=== PATIENT | female | born 1970 | race Caucasian/White ===

== ENCOUNTER 2018-12-09 12:26 | Inpatient (IN) | payer BC ==
[~2018-12-09] VITALS: Ht 162.6 cm; Wt 81.2 kg
[2018-12-09 12:33] VITALS: BP 154/96
[2018-12-09] MEDS ORDERED: IBUPROFEN200 MG ORAL (12:43)
[2018-12-09] MEDS ORDERED: TRAMADOL HCL50 MG ORAL (12:43)
[2018-12-09] MEDS ORDERED: AUGMENTIN 875-1 EAC1 ORAL (12:43)
[2018-12-09] MEDS ORDERED: METRONIDAZOLE500 MG ORAL (12:43)
[2018-12-09] MEDS ORDERED: PERCOCET 5-3251 EACH ORAL (12:43)
[2018-12-09] MEDS ORDERED: Morphine Sulfate 4mg/ml Inj (IV/IM USE ONLY) IVP ONE (12:45)
[2018-12-09 13:08] LABS: EOSINOPHILS % (AUTO) 0.1 % (0.0-3.0); HEMATOCRIT 40.6 % (37.0-47.0); HEMOGLOBIN 13.1 G/DL (12.0-16.0); LYMPHOCYTES % (AUTO) 16.6 % (20.0-45.0); MEAN CORPUSCULAR VOLUME 80 FL (80-99); MONOCYTES % (AUTO) 4.8 % (1.0-10.0); NEUTROPHILS % (AUTO) 77.6 % (45.0-75.0); PLATELET COUNT 376 K/UL (150-450); RED CELL DISTRIBUTION WIDTH 13.4 % (11.6-14.8); WHITE BLOOD COUNT 15.5 K/UL (4.8-10.8)
[2018-12-09 13:18] LABS: ANION GAP 10 mmol/L (5-15); BLOOD UREA NITROGEN 7 mg/dL (7-18); CALCIUM 9.3 MG/DL (8.5-10.1); CARBON DIOXIDE 25 MMOL/L (21-32); CHLORIDE 96 MMOL/L (98-107); CREATININE 0.6 MG/DL (0.55-1.30); POTASSIUM 3.7 MMOL/L (3.5-5.1); SODIUM 131 MMOL/L (136-145)
[2018-12-09 13:22] LABS: ALANINE AMINOTRANSFERASE 19 U/L (12-78); ALBUMIN 3.4 G/DL (3.4-5.0); ALBUMIN/GLOBULIN RATIO 0.8 (1.0-2.7); ALKALINE PHOSPHATASE 86 U/L (46-116); ASPARTATE AMINO TRANSFERASE 12 U/L (15-37); BILIRUBIN,TOTAL 0.5 MG/DL (0.2-1.0)
--- NOTE | 2018-12-09 13:47 | Emergency Room Report ---
History of Present Illness General Chief Complaint: General Complaint Source: Patient Present Illness HPI Patient presents with complaints of diffuse abdominal pain Patient has recent uterine artery thrombectomy performed Complains of 6 out of 10 pain diffuse Denies any fevers denies any chest pain or short of breath Patient has increased nausea denies any vomiting Patient reports pain also starting from her legs up to her chest Denies any other recent fall or trauma Allergies: Coded Allergies: Shrimp (Verified Allergy, Unknown, 12/09/18) Patient History Past Medical History: see triage record Pertinent Family History: none Reviewed Nursing Documentation: PMH: Agreed; PSxH: Agreed Nursing Documentation-PMH Past Medical History: No Stated History Review of Systems All Other Systems: negative except mentioned in HPI Physical Exam Vital Signs Date Time Temp Pulse Resp B/P (MAP) Pulse Ox O2 Delivery O2 Flow Rate FiO2 12/09/18 12:33 97.7 67 18 154/96 100 Room Air Sp02 EP Interpretation: reviewed, normal General Appearance: mild distress - In acute pain Head: normocephalic, atraumatic Eyes: bilateral eye PERRL, bilateral eye EOMI ENT: normal pharynx, dry mucus membranes Neck: supple Respiratory: lungs clear, no retraction, no accessory muscle use Cardiovascular #1: regular rate, rhythm Gastrointestinal: other - Uncomfortable diffusely however no obvious rigid abdomen good bowel sounds Genitourinary: no CVA tenderness Musculoskeletal: normal inspection, back normal Neurologic: alert, oriented x3 Skin: normal color, no rash Lymphatic: no adenopathy Medical Decision Making Diagnostic Impression: Primary Impression: Abdominal pain ER Course With the history exam and presentation, multiple differentials considered, including but not limited to appendicitis, gastritis, cholecystitis, diverticulitis Given the patient's recent procedure other acute abdominal pathology also entertained Vascular emergencies Patient reports that she is allergic to shrimp Radiology also raises concern of imaging with contrast Case is discussed with Dr. Parra And patient will have initial exam with noncontrast Patient has done significantly better with acute intervention and stable for further inpatient care Labs Test 12/09/18 12:55 12/09/18 13:35 White Blood Count 15.5 K/UL (4.8-10.8) Red Blood Count 5.10 M/UL (4.20-5.40) Hemoglobin 13.1 G/DL (12.0-16.0) Hematocrit 40.6 % (37.0-47.0) Mean Corpuscular Volume 80 FL (80-99) Mean Corpuscular Hemoglobin 25.8 PG (27.0-31.0) Mean Corpuscular Hemoglobin Concent 32.3 G/DL (32.0-36.0) Red Cell Distribution Width 13.4 % (11.6-14.8) Platelet Count 376 K/UL (150-450) Mean Platelet Volume 6.6 FL (6.5-10.1) Neutrophils (%) (Auto) 77.6 % (45.0-75.0) Lymphocytes (%) (Auto) 16.6 % (20.0-45.0) Monocytes (%) (Auto) 4.8 % (1.0-10.0) Eosinophils (%) (Auto) 0.1 % (0.0-3.0) Basophils (%) (Auto) 1.0 % (0.0-2.0) Sodium Level 131 MMOL/L (136-145) Potassium Level 3.7 MMOL/L (3.5-5.1) Chloride Level 96 MMOL/L (98-107) Carbon Dioxide Level 25 MMOL/L (21-32) Anion Gap 10 mmol/L (5-15) Blood Urea Nitrogen 7 mg/dL (7-18) Creatinine 0.6 MG/DL (0.55-1.30) Estimat Glomerular Filtration Rate > 60 mL/min (>60) Glucose Level 106 MG/DL (74-106) Calcium Level 9.3 MG/DL (8.5-10.1) Total Bilirubin 0.5 MG/DL (0.2-1.0) Aspartate Amino Transf (AST/SGOT) 12 U/L (15-37) Alanine Aminotransferase (ALT/SGPT) 19 U/L (12-78) Alkaline Phosphatase 86 U/L (46-116) Total Protein 7.5 G/DL (6.4-8.2) Albumin 3.4 G/DL (3.4-5.0) Globulin 4.1 g/dL Albumin/Globulin Ratio 0.8 (1.0-2.7) Lipase 115 U/L (73-393) CT/MRI/US Diagnostic Results CT/MRI/US Diagnostic Results : Impression CT abdomen pelvisImpression: 3.3 cm hyperattenuating focus centrally within the uterus. Given stated clinical history, could represent a recently embolized fibroid or could represent blood in the endometrium. No definite acute abnormality. No evidence of complications related to recent procedure Colonic diverticulosis. No evidence of diverticulitis Incidental findings of small cervical nabothian cysts, minimal degenerative spondylosis changes Last Vital Signs Date Time Temp Pulse Resp B/P (MAP) Pulse Ox O2 Delivery O2 Flow Rate FiO2 12/09/18 12:33 67 18 Room Air 12/09/18 12:33 97.7 154/96 100 Status: improved Disposition: ADMITTED INPATIENT Condition: Serious Referrals: Rigoberto Parra MD (PCP) Sanjay Saenz DO Dec 09, 2018 13:47
[2018-12-09 13:48] LABS: BILIRUBIN, URINE NEGATIVE (NEGATIVE); COLOR,URINE PALE YELLOW; GLUCOSE, URINE (UA) NEGATIVE (NEGATIVE); KETONES,URINE 2+ (NEGATIVE); LEUKOCYTE ESTERASE ,URINE 1+ (NEGATIVE); NITRITE,URINE NEGATIVE (NEGATIVE); PH,URINE 8 (4.5-8.0); PROTEIN,URINE NEGATIVE (NEGATIVE); UROBILINOGEN,URINE NORMAL MG/DL (0.0-1.0)
[2018-12-09 13:54] LABS: APPEARANCE,URINE SLIGHTLY CLOUDY
[2018-12-09] MEDS ORDERED: HYDROmorphone 1mg/ml Carpuject IVP ONE (14:15)
[2018-12-09 14:25] VITALS: BP 148/90
--- NOTE | 2018-12-09 14:32 | Diagnostic Imaging Report ---
Indication: Diffuse abdominal pain, history of recent uterine artery embolization Technique: Spiral acquisitions obtained through the abdomen and pelvis. No oral contrast utilized, per emergency room physician request No IV contrast utilized, per referring physician request.. Multiplanar reconstructions were generated. Total dose length product 1044.55 mGycm. CTDIvol(s) 19.51 mGy. Dose reduction achieved using automated exposure control Comparison: None Findings: Lack of IV contrast limits evaluation. Uterus is mildly prominent, demonstrates a subtle central minimally hyperattenuating area which measures 3.3 cm in diameter . No intrauterine gas or definite fluid. There are probable small cervical nabothian cysts Lack of enteric contrast limits assessment of the GI tract. There are a few colonic diverticula. The appendix is normal. No small bowel distention. No free or loculated intraperitoneal gas or fluid. Distal esophagus, stomach, duodenum are unremarkable. Lack of IV contrast limits assessment of the solid organs. The liver, gallbladder, bile ducts, pancreas, spleen, adrenals, kidneys are all unremarkable. No retroperitoneal or mesenteric mass or adenopathy. The included lung bases are clear. The bones demonstrate minimal degenerative spondylosis changes Impression: 3.3 cm hyperattenuating focus centrally within the uterus. Given stated clinical history, could represent a recently embolized fibroid or could represent blood in the endometrium. No definite acute abnormality. No evidence of complications related to recent procedure Colonic diverticulosis. No evidence of diverticulitis Incidental findings of small cervical nabothian cysts, minimal degenerative spondylosis changes The CT scanner at [facility] is accredited by the [employer] and the scans are performed using protocols designed to limit radiation exposure to as low as reasonably achievable to attain images of sufficient resolution adequate for diagnostic evaluation.
[2018-12-09 14:45] VITALS: BP 161/91
[2018-12-09] MEDS ORDERED: HYDROmorphone 1mg/ml Carpuject IVP PRN (16:00)
[2018-12-09] MEDS: ceFAZolin 1gm in D5W 55ml IVPB SCH ×2 (17:52→21:54)
[2018-12-09] MEDS: Potassium Chloride 20 MEQ in Dextrose 5%/Lactated Ringer's 1,000 ML IV SCH (17:53)
[2018-12-09] MEDS ORDERED: LOSARTAN POTASS50 MG ORAL (19:44)
[2018-12-09] MEDS ORDERED: NORVASC10 MG ORAL (19:44)
[2018-12-09 20:00] VITALS: BP 150/80
[2018-12-09] MEDS ORDERED: Losartan 50mg tab ORAL SCH (21:00)
[2018-12-09] MEDS ORDERED: ceFAZolin 1gm/50ml Premix 50 ML IV SCH (22:00)
[2018-12-10] VITALS: BP 113/62
[2018-12-10] MEDS: Potassium Chloride 20 MEQ in Dextrose 5%/Lactated Ringer's 1,000 ML IV SCH ×4 (01:39→20:05)
[2018-12-10 04:00] VITALS: BP 136/72
[2018-12-10] MEDS: ceFAZolin 1gm in D5W 55ml IVPB SCH ×3 (05:41→21:35)
[2018-12-10 06:43] LABS: BASOPHILS % (AUTO) 0.8 % (0.0-2.0); EOSINOPHILS % (AUTO) 0.8 % (0.0-3.0); HEMATOCRIT 37.1 % (37.0-47.0); HEMOGLOBIN 12.1 G/DL (12.0-16.0); LYMPHOCYTES % (AUTO) 23.3 % (20.0-45.0); MEAN CORPUSCULAR VOLUME 81 FL (80-99); MONOCYTES % (AUTO) 6.6 % (1.0-10.0); NEUTROPHILS % (AUTO) 68.5 % (45.0-75.0); PLATELET COUNT 321 K/UL (150-450); RED CELL DISTRIBUTION WIDTH 13.8 % (11.6-14.8); WHITE BLOOD COUNT 10.2 K/UL (4.8-10.8)
[2018-12-10 07:06] LABS: ANION GAP 5 mmol/L (5-15); BLOOD UREA NITROGEN 5 mg/dL (7-18); CALCIUM 8.2 MG/DL (8.5-10.1); CARBON DIOXIDE 29 MMOL/L (21-32); CHLORIDE 100 MMOL/L (98-107); CREATININE 0.6 MG/DL (0.55-1.30); POTASSIUM 3.8 MMOL/L (3.5-5.1); SODIUM 134 MMOL/L (136-145)
--- NOTE | 2018-12-10 08:19 | General Progress Note ---
Assessment/Plan Problem List: (1) Constipation ICD Codes: K59.00 - Constipation, unspecified SNOMED: 68600283 (2) Abdominal pain ICD Codes: R10.9 - Unspecified abdominal pain SNOMED: 16206705 Assessment/Plan bowel regimen fu labs pain control advance diet to full liquid will fu Subjective ROS Limited/Unobtainable: Yes Allergies: Coded Allergies: Shrimp (Verified Allergy, Unknown, 12/09/18) Subjective c/o pelvic pain radiating to the left thigh Objective Last 24 Hour Vital Signs Date Time Temp Pulse Resp B/P (MAP) Pulse Ox O2 Delivery O2 Flow Rate FiO2 12/10/18 04:00 98.1 74 18 136/72 (93) 98 12/10/18 02:17 99.6 12/10/18 00:00 98.2 82 18 113/62 (79) 93 12/09/18 21:56 79 157/80 12/09/18 21:55 157/80 12/09/18 21:00 Room Air 12/09/18 20:00 97.6 79 18 150/80 (103) 99 12/09/18 14:45 99.6 77 18 161/91 (114) 100 12/09/18 14:37 Room Air 12/09/18 14:25 97.7 77 16 148/90 100 Room Air 12/09/18 14:25 97.7 77 16 148/90 100 Room Air 12/09/18 13:33 97.7 12/09/18 12:33 67 18 Room Air 12/09/18 12:33 97.7 67 18 154/96 100 Room Air 12/09/18 12:33 97.7 67 18 154/96 100 Room Air Intake and Output 12/09/18 12/10/18 18:59 06:59 Intake Total 1000 ml 1760 ml Output Total 0 ml Balance 1000 ml 1760 ml Intake IV Total 1000 ml 1760 ml Output Urine Total 0 ml # Voids 4 Laboratory Tests 12/09/18 12:55: White Blood Count 15.5H, Red Blood Count 5.10, Hemoglobin 13.1, Hematocrit 40.6 , Mean Corpuscular Volume 80, Mean Corpuscular Hemoglobin 25.8L, Mean Corpuscular Hemoglobin Concent 32.3, Red Cell Distribution Width 13.4, Platelet Count 376, Mean Platelet Volume 6.6, Neutrophils (%) (Auto) 77.6H, Lymphocytes ( %) (Auto) 16.6L, Monocytes (%) (Auto) 4.8, Eosinophils (%) (Auto) 0.1, Basophils (%) (Auto) 1.0, Sodium Level 131L, Potassium Level 3.7, Chloride Level 96L, Carbon Dioxide Level 25, Anion Gap 10, Blood Urea Nitrogen 7, Creatinine 0.6, Estimat Glomerular Filtration Rate > 60, Glucose Level 106, Calcium Level 9.3, Total Bilirubin 0.5, Aspartate Amino Transf (AST/SGOT) 12L, Alanine Aminotransferase (ALT/SGPT) 19, Alkaline Phosphatase 86, Total Protein 7.5, Albumin 3.4, Globulin 4.1, Albumin/Globulin Ratio 0.8L, Lipase 115 12/09/18 13:35: Urine Color Pale yellow, Urine Appearance Slightly cloudy, Urine pH 8, Urine Specific [place] 1.010, Urine Protein Negative, Urine Glucose (UA) Negative, Urine Ketones 2+H, Urine Blood 4+H, Urine Nitrite Negative, Urine Bilirubin Negative, Urine Urobilinogen Normal, Urine Leukocyte Esterase 1+H, Urine RBC 2- 4H, Urine WBC 0-2, Urine Squamous Epithelial Cells Few, Urine Bacteria Few 12/10/18 05:05: White Blood Count 10.2, Red Blood Count 4.60, Hemoglobin 12.1, Hematocrit 37.1, Mean Corpuscular Volume 81, Mean Corpuscular Hemoglobin 26.3L, Mean Corpuscular Hemoglobin Concent 32.6, Red Cell Distribution Width 13.8, Platelet Count 321, Mean Platelet Volume 6.6, Neutrophils (%) (Auto) 68.5, Lymphocytes (%) (Auto) 23.3, Monocytes (%) (Auto) 6.6, Eosinophils (%) (Auto) 0.8, Basophils (%) (Auto ) 0.8, Sodium Level 134L, Potassium Level 3.8, Chloride Level 100, Carbon Dioxide Level 29, Anion Gap 5, Blood Urea Nitrogen 5L, Creatinine 0.6, Estimat Glomerular Filtration Rate > 60, Glucose Level 101, Calcium Level 8.2L Height (Feet): 5 Height (Inches): 4.00 Weight (Pounds): 179 General Appearance: alert EENT: normal ENT inspection Neck: supple Cardiovascular: normal rate Respiratory/Chest: decreased breath sounds Abdomen: normal bowel sounds, soft, tender Extremities: non-tender Lucas Mclaughlin MD Dec 10, 2018 08:19
[2018-12-10] MEDS: Losartan 50mg tab ORAL SCH ×2 (09:00→09:09)
[2018-12-10] MEDS: Docusate 100mg cap ORAL SCH ×2 (09:06→18:32)
[2018-12-10] MEDS: Lactulose 20gm/30ml UDC ORAL SCH ×3 (09:06→18:32)
--- NOTE | 2018-12-10 11:48 | General Surgery Progress Note ---
General Surgery-Progress Note Subjective Procedure Performed uterine artery embolization Chief Complaint: uncontrolled pain Symptoms: improved, tolerating diet, voiding well Objective Last 24 Hour Vital Signs Date Time Temp Pulse Resp B/P (MAP) Pulse Ox O2 Delivery O2 Flow Rate FiO2 12/10/18 09:00 Room Air 12/10/18 04:00 98.1 74 18 136/72 (93) 98 12/10/18 02:17 99.6 12/10/18 00:00 98.2 82 18 113/62 (79) 93 12/09/18 21:56 79 157/80 12/09/18 21:55 157/80 12/09/18 21:00 Room Air 12/09/18 20:00 97.6 79 18 150/80 (103) 99 12/09/18 14:45 99.6 77 18 161/91 (114) 100 12/09/18 14:37 Room Air 12/09/18 14:25 97.7 77 16 148/90 100 Room Air 12/09/18 14:25 97.7 77 16 148/90 100 Room Air 12/09/18 13:33 97.7 12/09/18 12:33 67 18 Room Air 12/09/18 12:33 97.7 67 18 154/96 100 Room Air 12/09/18 12:33 97.7 67 18 154/96 100 Room Air I&O Intake and Output 12/09/18 12/10/18 18:59 06:59 Intake Total 1000 ml 1760 ml Output Total 0 ml Balance 1000 ml 1760 ml Intake IV Total 1000 ml 1760 ml Output Urine Total 0 ml # Voids 4 Dressing: dry Wound: clean Cardiovascular: RSR Respiratory: clear Abdomen: soft, flat, scaphoid, tenderness, absent bowel sounds Extremities: no edema, no tenderness, no cyanosis Laboratory Tests Test 12/09/18 12:55 12/09/18 13:35 12/10/18 05:05 White Blood Count 15.5 K/UL (4.8-10.8) H 10.2 K/UL (4.8-10.8) Red Blood Count 5.10 M/UL (4.20-5.40) 4.60 M/UL (4.20-5.40) Hemoglobin 13.1 G/DL (12.0-16.0) 12.1 G/DL (12.0-16.0) Hematocrit 40.6 % (37.0-47.0) 37.1 % (37.0-47.0) Mean Corpuscular Volume 80 FL (80-99) 81 FL (80-99) Mean Corpuscular Hemoglobin 25.8 PG (27.0-31.0) L 26.3 PG (27.0-31.0) L Mean Corpuscular Hemoglobin Concent 32.3 G/DL (32.0-36.0) 32.6 G/DL (32.0-36.0) Red Cell Distribution Width 13.4 % (11.6-14.8) 13.8 % (11.6-14.8) Platelet Count 376 K/UL (150-450) 321 K/UL (150-450) Mean Platelet Volume 6.6 FL (6.5-10.1) 6.6 FL (6.5-10.1) Neutrophils (%) (Auto) 77.6 % (45.0-75.0) H 68.5 % (45.0-75.0) Lymphocytes (%) (Auto) 16.6 % (20.0-45.0) L 23.3 % (20.0-45.0) Monocytes (%) (Auto) 4.8 % (1.0-10.0) 6.6 % (1.0-10.0) Eosinophils (%) (Auto) 0.1 % (0.0-3.0) 0.8 % (0.0-3.0) Basophils (%) (Auto) 1.0 % (0.0-2.0) 0.8 % (0.0-2.0) Sodium Level 131 MMOL/L (136-145) L 134 MMOL/L (136-145) L Potassium Level 3.7 MMOL/L (3.5-5.1) 3.8 MMOL/L (3.5-5.1) Chloride Level 96 MMOL/L (98-107) L 100 MMOL/L (98-107) Carbon Dioxide Level 25 MMOL/L (21-32) 29 MMOL/L (21-32) Anion Gap 10 mmol/L (5-15) 5 mmol/L (5-15) Blood Urea Nitrogen 7 mg/dL (7-18) 5 mg/dL (7-18) L Creatinine 0.6 MG/DL (0.55-1.30) 0.6 MG/DL (0.55-1.30) Estimat Glomerular Filtration Rate > 60 mL/min (>60) > 60 mL/min (>60) Glucose Level 106 MG/DL (74-106) 101 MG/DL (74-106) Calcium Level 9.3 MG/DL (8.5-10.1) 8.2 MG/DL (8.5-10.1) L Total Bilirubin 0.5 MG/DL (0.2-1.0) Aspartate Amino Transf (AST/SGOT) 12 U/L (15-37) L Alanine Aminotransferase (ALT/SGPT) 19 U/L (12-78) Alkaline Phosphatase 86 U/L (46-116) Total Protein 7.5 G/DL (6.4-8.2) Albumin 3.4 G/DL (3.4-5.0) Globulin 4.1 g/dL Albumin/Globulin Ratio 0.8 (1.0-2.7) L Lipase 115 U/L (73-393) Urine Color Pale yellow Urine Appearance Slightly cloudy Urine pH 8 (4.5-8.0) Urine Specific [place] 1.010 (1.005-1.035) Urine Protein Negative (NEGATIVE) Urine Glucose (UA) Negative (NEGATIVE) Urine Ketones 2+ (NEGATIVE) H Urine Blood 4+ (NEGATIVE) H Urine Nitrite Negative (NEGATIVE) Urine Bilirubin Negative (NEGATIVE) Urine Urobilinogen Normal MG/DL (0.0-1.0) Urine Leukocyte Esterase 1+ (NEGATIVE) H Urine RBC 2-4 /HPF (0 - 2) H Urine WBC 0-2 /HPF (0 - 2) Urine Squamous Epithelial Cells Few /LPF (NONE/OCC) Urine Bacteria Few /HPF (NONE) Imaging no obvious abscess seen Additional Comments wbc normally elevated followin uae Plan Additional Comments pain controlled w iv dilaudid, will attempt oral meds tomorrow. ambulate today. Rigoberto Parra MD Dec 10, 2018 11:48
[2018-12-10] MEDS ORDERED: Tubing IV Secondary IV ONE (14:10)
[2018-12-10 20:00] VITALS: BP 156/90
[2018-12-10] MEDS: Miralax 17gm pkt ORAL SCH (20:04)
[2018-12-11] VITALS (8 sets, daily range): BP systolic 133–182; BP diastolic 74–98
[2018-12-11] MEDS: Potassium Chloride 20 MEQ in Dextrose 5%/Lactated Ringer's 1,000 ML IV SCH ×4 (02:40→23:54)
[2018-12-11] MEDS: ceFAZolin 1gm in D5W 55ml IVPB SCH ×3 (05:37→21:36)
[2018-12-11 06:52] LABS: ANION GAP 7 mmol/L (5-15); BASOPHILS % (AUTO) 1.4 % (0.0-2.0); BLOOD UREA NITROGEN 3 mg/dL (7-18); CALCIUM 8.9 MG/DL (8.5-10.1); CARBON DIOXIDE 30 MMOL/L (21-32); CHLORIDE 99 MMOL/L (98-107); CREATININE 0.6 MG/DL (0.55-1.30); EOSINOPHILS % (AUTO) 1.5 % (0.0-3.0); HEMATOCRIT 37.7 % (37.0-47.0); HEMOGLOBIN 12.5 G/DL (12.0-16.0); LYMPHOCYTES % (AUTO) 20.2 % (20.0-45.0); MEAN CORPUSCULAR VOLUME 80 FL (80-99); MONOCYTES % (AUTO) 6.2 % (1.0-10.0); NEUTROPHILS % (AUTO) 70.7 % (45.0-75.0); PLATELET COUNT 304 K/UL (150-450); POTASSIUM 3.9 MMOL/L (3.5-5.1); RED BLOOD COUNT 4.72 M/UL (4.20-5.40); RED CELL DISTRIBUTION WIDTH 13.8 % (11.6-14.8); SODIUM 135 MMOL/L (136-145)
--- NOTE | 2018-12-11 08:06 | General Progress Note ---
Assessment/Plan Problem List: (1) Constipation ICD Codes: K59.00 - Constipation, unspecified SNOMED: 81992795 (2) Abdominal pain ICD Codes: R10.9 - Unspecified abdominal pain SNOMED: 72381271 Assessment/Plan bowel regimen add dulcolax sup and mineral oil for today fu labs pain control advance diet to gi soft will fu Subjective ROS Limited/Unobtainable: Yes Allergies: Coded Allergies: ACETAMINOPHEN (Verified Allergy, Unknown, 12/10/18) HYDROCODONE (Verified Allergy, Unknown, 12/10/18) Shrimp (Verified Allergy, Unknown, 12/09/18) Subjective feeling better passing gas no bm yet Objective Last 24 Hour Vital Signs Date Time Temp Pulse Resp B/P (MAP) Pulse Ox O2 Delivery O2 Flow Rate FiO2 12/11/18 04:00 99.2 85 18 133/80 (97) 98 12/11/18 00:00 99.3 77 18 148/84 (105) 97 12/10/18 21:00 Room Air 12/10/18 20:00 99.5 79 18 156/90 (112) 97 12/10/18 09:00 Room Air Intake and Output 12/10/18 12/11/18 19:00 07:00 Intake Total 1465 ml 1725 ml Balance 1465 ml 1725 ml Intake Oral 360 ml 360 ml IV Total 1105 ml 1365 ml # Voids 4 3 Laboratory Tests 12/11/18 05:35: White Blood Count 11.0H, Red Blood Count 4.72, Hemoglobin 12.5, Hematocrit 37.7 , Mean Corpuscular Volume 80, Mean Corpuscular Hemoglobin 26.5L, Mean Corpuscular Hemoglobin Concent 33.1, Red Cell Distribution Width 13.8, Platelet Count 304, Mean Platelet Volume 6.8, Neutrophils (%) (Auto) 70.7, Lymphocytes (% ) (Auto) 20.2, Monocytes (%) (Auto) 6.2, Eosinophils (%) (Auto) 1.5, Basophils ( %) (Auto) 1.4, Sodium Level 135L, Potassium Level 3.9, Chloride Level 99, Carbon Dioxide Level 30, Anion Gap 7, Blood Urea Nitrogen 3L, Creatinine 0.6, Estimat Glomerular Filtration Rate > 60, Glucose Level 103, Calcium Level 8.9 Height (Feet): 5 Height (Inches): 4.00 Weight (Pounds): 179 General Appearance: alert EENT: normal ENT inspection Neck: supple Cardiovascular: normal rate Respiratory/Chest: lungs clear Abdomen: soft, hypoactive bowel sounds, tender Extremities: non-tender Lucas Mclaughlin MD Dec 11, 2018 08:06
[2018-12-11] MEDS ORDERED: Mineral Oil 30ml ud ORAL SCH (08:15)
[2018-12-11] MEDS: Losartan 50mg tab ORAL SCH (08:27)
[2018-12-11] MEDS: Lactulose 20gm/30ml UDC ORAL SCH ×3 (08:27→17:22)
[2018-12-11] MEDS: Docusate 100mg cap ORAL SCH ×2 (08:27→17:22)
--- NOTE | 2018-12-11 11:41 | General Surgery Progress Note ---
General Surgery-Progress Note Subjective Procedure Performed uterine artery embolization Symptoms: improved, tolerating diet, voiding well, BM, pain decreased Objective Last 24 Hour Vital Signs Date Time Temp Pulse Resp B/P (MAP) Pulse Ox O2 Delivery O2 Flow Rate FiO2 12/11/18 11:14 98.9 12/11/18 08:39 Room Air 12/11/18 08:27 85 133/80 12/11/18 08:27 133/80 12/11/18 08:00 98.9 81 18 162/82 (108) 98 12/11/18 04:00 99.2 85 18 133/80 (97) 98 12/11/18 00:00 99.3 77 18 148/84 (105) 97 12/10/18 21:00 Room Air 12/10/18 20:00 99.5 79 18 156/90 (112) 97 I&O Intake and Output 12/10/18 12/11/18 18:59 06:59 Intake Total 1465 ml 1725 ml Balance 1465 ml 1725 ml Intake Oral 360 ml 360 ml IV Total 1105 ml 1365 ml # Voids 4 3 Dressing: dry Wound: clean Drains: none Cardiovascular: RSR Respiratory: clear Abdomen: soft, flat, scaphoid, tenderness Extremities: no edema, no tenderness, no cyanosis Laboratory Tests Test 12/11/18 05:35 White Blood Count 11.0 K/UL (4.8-10.8) H Red Blood Count 4.72 M/UL (4.20-5.40) Hemoglobin 12.5 G/DL (12.0-16.0) Hematocrit 37.7 % (37.0-47.0) Mean Corpuscular Volume 80 FL (80-99) Mean Corpuscular Hemoglobin 26.5 PG (27.0-31.0) L Mean Corpuscular Hemoglobin Concent 33.1 G/DL (32.0-36.0) Red Cell Distribution Width 13.8 % (11.6-14.8) Platelet Count 304 K/UL (150-450) Mean Platelet Volume 6.8 FL (6.5-10.1) Neutrophils (%) (Auto) 70.7 % (45.0-75.0) Lymphocytes (%) (Auto) 20.2 % (20.0-45.0) Monocytes (%) (Auto) 6.2 % (1.0-10.0) Eosinophils (%) (Auto) 1.5 % (0.0-3.0) Basophils (%) (Auto) 1.4 % (0.0-2.0) Sodium Level 135 MMOL/L (136-145) L Potassium Level 3.9 MMOL/L (3.5-5.1) Chloride Level 99 MMOL/L (98-107) Carbon Dioxide Level 30 MMOL/L (21-32) Anion Gap 7 mmol/L (5-15) Blood Urea Nitrogen 3 mg/dL (7-18) L Creatinine 0.6 MG/DL (0.55-1.30) Estimat Glomerular Filtration Rate > 60 mL/min (>60) Glucose Level 103 MG/DL (74-106) Calcium Level 8.9 MG/DL (8.5-10.1) Assessment Additional Comments dulcolax suppository pending. Plan Additional Comments attempt oral pain medication today Rigoberto Parra MD Dec 11, 2018 11:41
[2018-12-11] MEDS: Miralax 17gm pkt ORAL SCH (21:00)
[2018-12-12 03:32] VITALS: BP 166/80
[2018-12-12 04:52] VITALS: BP 155/83
[2018-12-12] MEDS: ceFAZolin 1gm in D5W 55ml IVPB SCH ×3 (05:06→22:00)
[2018-12-12] MEDS: Potassium Chloride 20 MEQ in Dextrose 5%/Lactated Ringer's 1,000 ML IV SCH ×4 (05:06→21:22)
[2018-12-12 06:16] LABS: BASOPHILS % (AUTO) 0.9 % (0.0-2.0); EOSINOPHILS % (AUTO) 1.2 % (0.0-3.0); HEMATOCRIT 37.4 % (37.0-47.0); HEMOGLOBIN 12.2 G/DL (12.0-16.0); LYMPHOCYTES % (AUTO) 19.4 % (20.0-45.0); MEAN CORPUSCULAR VOLUME 80 FL (80-99); MONOCYTES % (AUTO) 7.5 % (1.0-10.0); PLATELET COUNT 306 K/UL (150-450); RED BLOOD COUNT 4.67 M/UL (4.20-5.40); RED CELL DISTRIBUTION WIDTH 13.9 % (11.6-14.8); WHITE BLOOD COUNT 11.1 K/UL (4.8-10.8)
[2018-12-12 06:30] LABS: ANION GAP 5 mmol/L (5-15); BLOOD UREA NITROGEN 4 mg/dL (7-18); CALCIUM 8.8 MG/DL (8.5-10.1); CARBON DIOXIDE 31 MMOL/L (21-32); CHLORIDE 98 MMOL/L (98-107); CREATININE 0.6 MG/DL (0.55-1.30); POTASSIUM 3.5 MMOL/L (3.5-5.1); SODIUM 134 MMOL/L (136-145)
[2018-12-12 08:00] VITALS: BP 144/77
[2018-12-12] MEDS: Docusate 100mg cap ORAL SCH ×2 (08:44→17:40)
[2018-12-12] MEDS: Losartan 50mg tab ORAL SCH (08:44)
[2018-12-12] MEDS: Lactulose 20gm/30ml UDC ORAL SCH ×3 (08:44→17:40)
[2018-12-12] MEDS ORDERED: Simethicone 80mg tab ORAL PRN (10:45)
[2018-12-12] MEDS ORDERED: Simethicone 80mg tab ORAL SCH (10:46)
--- NOTE | 2018-12-12 10:48 | GI Progress Note ---
Assessment/Plan Problems: (1) Gas pain ICD Codes: R14.1 - Gas pain SNOMED: 31671644 (2) Abdominal pain ICD Codes: R10.9 - Unspecified abdominal pain SNOMED: 44345866 (3) Constipation ICD Codes: K59.00 - Constipation, unspecified SNOMED: 21574280 Status: unchanged Status Narrative Discussed with Dr. Mclaughlin. Assessment/Plan bowel regimen add dulcolax sup and mineral oil for today Simethicone as needed Probiotics 3 times daily pain control advance diet to gi soft fu labs The patient was seen and examined at bedside and all new and available data was reviewed in the patients chart. I agree with the above findings, impression and plan. (Patient seen earlier today. Signature stamp does not reflect patient encounter time.). - Lucas Mclaughlin MD Subjective Gastrointestinal/Abdominal: Reports: abdominal pain Subjective Patient has complaint of generalized abdominal pain after P.o. intake had bowel movement yesterday Objective Last 24 Hour Vital Signs Date Time Temp Pulse Resp B/P (MAP) Pulse Ox O2 Delivery O2 Flow Rate FiO2 12/12/18 09:00 Room Air 12/12/18 08:44 71 144/77 12/12/18 08:44 144/77 12/12/18 08:00 97.8 71 18 144/77 (99) 100 12/12/18 04:52 76 155/83 (107) 12/12/18 04:23 98.3 12/12/18 03:32 98.3 75 20 166/80 (108) 98 12/11/18 23:54 98.5 90 20 152/79 (103) 98 12/11/18 22:29 85 165/85 (111) 12/11/18 22:06 99.0 12/11/18 21:36 Room Air 12/11/18 20:40 99.0 88 20 182/98 (126) 98 12/11/18 16:00 97.1 97 20 147/89 (108) 98 12/11/18 12:00 98.3 97 20 146/74 (98) 97 Intake and Output 12/11/18 12/12/18 19:00 07:00 Intake Total 2445 ml 1850 ml Balance 2445 ml 1850 ml Intake Oral 890 ml 240 ml IV Total 1555 ml 1610 ml # Voids 3 4 # Bowel Movements 2 Laboratory Tests Test 12/12/18 05:00 White Blood Count 11.1 K/UL (4.8-10.8) H Red Blood Count 4.67 M/UL (4.20-5.40) Hemoglobin 12.2 G/DL (12.0-16.0) Hematocrit 37.4 % (37.0-47.0) Mean Corpuscular Volume 80 FL (80-99) Mean Corpuscular Hemoglobin 26.2 PG (27.0-31.0) L Mean Corpuscular Hemoglobin Concent 32.7 G/DL (32.0-36.0) Red Cell Distribution Width 13.9 % (11.6-14.8) Platelet Count 306 K/UL (150-450) Mean Platelet Volume 6.4 FL (6.5-10.1) L Neutrophils (%) (Auto) 71.0 % (45.0-75.0) Lymphocytes (%) (Auto) 19.4 % (20.0-45.0) L Monocytes (%) (Auto) 7.5 % (1.0-10.0) Eosinophils (%) (Auto) 1.2 % (0.0-3.0) Basophils (%) (Auto) 0.9 % (0.0-2.0) Sodium Level 134 MMOL/L (136-145) L Potassium Level 3.5 MMOL/L (3.5-5.1) Chloride Level 98 MMOL/L (98-107) Carbon Dioxide Level 31 MMOL/L (21-32) Anion Gap 5 mmol/L (5-15) Blood Urea Nitrogen 4 mg/dL (7-18) L Creatinine 0.6 MG/DL (0.55-1.30) Estimat Glomerular Filtration Rate > 60 mL/min (>60) Glucose Level 88 MG/DL (74-106) Calcium Level 8.8 MG/DL (8.5-10.1) Height (Feet): 5 Height (Inches): 4.00 Weight (Pounds): 179 General Appearance: WD/WN, no apparent distress, alert Cardiovascular: normal rate Respiratory/Chest: normal breath sounds, no respiratory distress Abdominal Exam: normal bowel sounds, non tender, soft Extremities: normal range of motion, non-tender Cherelle Fagan CUT OFF SAW SET UP OPERATOR Dec 12, 2018 10:48
--- NOTE | 2018-12-12 11:11 | General Surgery Progress Note ---
General Surgery-Progress Note Subjective Procedure Performed uterine artery embolization Symptoms: passing flatus, BM, pain decreased Additional Comments pain ff eating, minimal BM yesterday Objective Last 24 Hour Vital Signs Date Time Temp Pulse Resp B/P (MAP) Pulse Ox O2 Delivery O2 Flow Rate FiO2 12/12/18 09:00 Room Air 12/12/18 08:44 71 144/77 12/12/18 08:44 144/77 12/12/18 08:00 97.8 71 18 144/77 (99) 100 12/12/18 04:52 76 155/83 (107) 12/12/18 04:23 98.3 12/12/18 03:32 98.3 75 20 166/80 (108) 98 12/11/18 23:54 98.5 90 20 152/79 (103) 98 12/11/18 22:29 85 165/85 (111) 12/11/18 22:06 99.0 12/11/18 21:36 Room Air 12/11/18 20:40 99.0 88 20 182/98 (126) 98 12/11/18 16:00 97.1 97 20 147/89 (108) 98 12/11/18 12:00 98.3 97 20 146/74 (98) 97 I&O Intake and Output 12/11/18 12/12/18 19:00 07:00 Intake Total 2445 ml 1850 ml Balance 2445 ml 1850 ml Intake Oral 890 ml 240 ml IV Total 1555 ml 1610 ml # Voids 3 4 # Bowel Movements 2 Laboratory Tests Test 12/12/18 05:00 White Blood Count 11.1 K/UL (4.8-10.8) H Red Blood Count 4.67 M/UL (4.20-5.40) Hemoglobin 12.2 G/DL (12.0-16.0) Hematocrit 37.4 % (37.0-47.0) Mean Corpuscular Volume 80 FL (80-99) Mean Corpuscular Hemoglobin 26.2 PG (27.0-31.0) L Mean Corpuscular Hemoglobin Concent 32.7 G/DL (32.0-36.0) Red Cell Distribution Width 13.9 % (11.6-14.8) Platelet Count 306 K/UL (150-450) Mean Platelet Volume 6.4 FL (6.5-10.1) L Neutrophils (%) (Auto) 71.0 % (45.0-75.0) Lymphocytes (%) (Auto) 19.4 % (20.0-45.0) L Monocytes (%) (Auto) 7.5 % (1.0-10.0) Eosinophils (%) (Auto) 1.2 % (0.0-3.0) Basophils (%) (Auto) 0.9 % (0.0-2.0) Sodium Level 134 MMOL/L (136-145) L Potassium Level 3.5 MMOL/L (3.5-5.1) Chloride Level 98 MMOL/L (98-107) Carbon Dioxide Level 31 MMOL/L (21-32) Anion Gap 5 mmol/L (5-15) Blood Urea Nitrogen 4 mg/dL (7-18) L Creatinine 0.6 MG/DL (0.55-1.30) Estimat Glomerular Filtration Rate > 60 mL/min (>60) Glucose Level 88 MG/DL (74-106) Calcium Level 8.8 MG/DL (8.5-10.1) Plan Additional Comments GI consulted abdominal US ordered. possible use of magnesium citrate? Rigoberto Parra MD Dec 12, 2018 11:11
[2018-12-12 12:00] VITALS: BP 122/90
--- NOTE | 2018-12-12 12:55 | Diagnostic Imaging Report ---
Indication:Abdominal pain Technique: Grayscale and duplex Doppler imaging of the abdomen performed. Comparison: None Findings: The liver is unremarkable. The gallbladder is mildly distended. No gallstones identified. CBD is between 5 and 6 mm. The demonstrated part of the pancreas, aorta and IVC show no abnormalities although pancreas is not well seen. Both kidneys appear unremarkable. The spleen is normal in size. There is no biliary ductal dilatation identified. Doppler evaluation of the main portal vein shows patency. There is no ascites. No hydronephrosis seen. Impression: No acute findings.
[2018-12-12] MEDS: Lactobacillus-GG tablet ORAL SCH ×2 (13:45→17:40)
[2018-12-12 16:00] VITALS: BP 162/89
[2018-12-12 20:00] VITALS: BP 153/77
[2018-12-12] MEDS: Miralax 17gm pkt ORAL SCH (21:00)
[2018-12-13 04:00] VITALS: BP 140/75
[2018-12-13] MEDS: ceFAZolin 1gm in D5W 55ml IVPB SCH ×2 (06:23→13:26)
[2018-12-13 07:39] LABS: BASOPHILS % (AUTO) 1.1 % (0.0-2.0); EOSINOPHILS % (AUTO) 1.7 % (0.0-3.0); HEMATOCRIT 37.4 % (37.0-47.0); HEMOGLOBIN 12.4 G/DL (12.0-16.0); MEAN CORPUSCULAR VOLUME 80 FL (80-99); MONOCYTES % (AUTO) 5.9 % (1.0-10.0); NEUTROPHILS % (AUTO) 70.2 % (45.0-75.0); PLATELET COUNT 317 K/UL (150-450); RED BLOOD COUNT 4.68 M/UL (4.20-5.40); RED CELL DISTRIBUTION WIDTH 13.7 % (11.6-14.8)
[2018-12-13 07:56] LABS: ANION GAP 6 mmol/L (5-15); BLOOD UREA NITROGEN 5 mg/dL (7-18); CALCIUM 8.7 MG/DL (8.5-10.1); CARBON DIOXIDE 29 MMOL/L (21-32); CHLORIDE 99 MMOL/L (98-107); CREATININE 0.5 MG/DL (0.55-1.30); POTASSIUM 3.8 MMOL/L (3.5-5.1); SODIUM 134 MMOL/L (136-145)
[2018-12-13 08:00] VITALS: BP 143/87
[2018-12-13] MEDS: Lactulose 20gm/30ml UDC ORAL SCH ×2 (09:06→13:26)
[2018-12-13] MEDS: Losartan 50mg tab ORAL SCH (09:06)
[2018-12-13] MEDS: Docusate 100mg cap ORAL SCH (09:06)
[2018-12-13] MEDS: Potassium Chloride 20 MEQ in Dextrose 5%/Lactated Ringer's 1,000 ML IV SCH ×2 (09:06→15:16)
[2018-12-13] MEDS: Lactobacillus-GG tablet ORAL SCH ×2 (09:07→13:26)
[2018-12-13 12:00] VITALS: BP 163/79
--- NOTE | 2018-12-13 14:18 | General Surgery Progress Note ---
General Surgery-Progress Note Subjective Procedure Performed uterine artery embolization Objective Last 24 Hour Vital Signs Date Time Temp Pulse Resp B/P (MAP) Pulse Ox O2 Delivery O2 Flow Rate FiO2 12/13/18 12:00 98.3 81 20 163/79 (107) 99 12/13/18 09:36 98.8 12/13/18 09:07 89 143/87 12/13/18 09:06 143/87 12/13/18 09:00 Room Air 12/13/18 08:00 98.8 89 20 143/87 (105) 97 12/13/18 04:00 98.5 87 20 140/75 (96) 12/12/18 21:00 Room Air 12/12/18 20:00 97.2 84 20 153/77 (102) 98 12/12/18 16:00 97.9 80 18 162/89 (113) 99 I&O Intake and Output 12/12/18 12/13/18 19:00 07:00 Intake Total 350 ml 1535 ml Balance 350 ml 1535 ml Intake Oral 350 ml 280 ml IV Total 1255 ml # Voids 3 2 Laboratory Tests Test 12/13/18 06:23 White Blood Count 10.0 K/UL (4.8-10.8) Red Blood Count 4.68 M/UL (4.20-5.40) Hemoglobin 12.4 G/DL (12.0-16.0) Hematocrit 37.4 % (37.0-47.0) Mean Corpuscular Volume 80 FL (80-99) Mean Corpuscular Hemoglobin 26.4 PG (27.0-31.0) L Mean Corpuscular Hemoglobin Concent 33.1 G/DL (32.0-36.0) Red Cell Distribution Width 13.7 % (11.6-14.8) Platelet Count 317 K/UL (150-450) Mean Platelet Volume 6.1 FL (6.5-10.1) L Neutrophils (%) (Auto) 70.2 % (45.0-75.0) Lymphocytes (%) (Auto) 21.0 % (20.0-45.0) Monocytes (%) (Auto) 5.9 % (1.0-10.0) Eosinophils (%) (Auto) 1.7 % (0.0-3.0) Basophils (%) (Auto) 1.1 % (0.0-2.0) Sodium Level 134 MMOL/L (136-145) L Potassium Level 3.8 MMOL/L (3.5-5.1) Chloride Level 99 MMOL/L (98-107) Carbon Dioxide Level 29 MMOL/L (21-32) Anion Gap 6 mmol/L (5-15) Blood Urea Nitrogen 5 mg/dL (7-18) L Creatinine 0.5 MG/DL (0.55-1.30) L Estimat Glomerular Filtration Rate > 60 mL/min (>60) Glucose Level 103 MG/DL (74-106) Calcium Level 8.7 MG/DL (8.5-10.1) Plan Additional Comments pain now controlled orally, + BM. ok to discharge Rigoberto Parra MD Dec 13, 2018 14:18
--- NOTE | 2018-12-13 15:14 | GI Progress Note ---
Assessment/Plan Problems: (1) Gas pain ICD Codes: R14.1 - Gas pain SNOMED: 39613619 (2) Abdominal pain ICD Codes: R10.9 - Unspecified abdominal pain SNOMED: 17155838 (3) Constipation ICD Codes: K59.00 - Constipation, unspecified SNOMED: 76958322 Status: stable Status Narrative Discussed with Dr. Mclaughlin Assessment/Plan okay for DC per GI standpoint bowel regimen add dulcolax sup and mineral oil for today Simethicone as needed Probiotics 3 times daily pain control advance diet to gi soft DC lactulose which may cause abdominal bloating fu labs The patient was seen and examined at bedside and all new and available data was reviewed in the patients chart. I agree with the above findings, impression and plan. (Patient seen earlier today. Signature stamp does not reflect patient encounter time.). - Lucas Mclaughlin MD Subjective Subjective Abdominal pain improved Had bowel movement last night p Refusing lactulose Objective Last 24 Hour Vital Signs Date Time Temp Pulse Resp B/P (MAP) Pulse Ox O2 Delivery O2 Flow Rate FiO2 12/13/18 12:00 98.3 81 20 163/79 (107) 99 12/13/18 09:36 98.8 12/13/18 09:07 89 143/87 12/13/18 09:06 143/87 12/13/18 09:00 Room Air 12/13/18 08:00 98.8 89 20 143/87 (105) 97 12/13/18 04:00 98.5 87 20 140/75 (96) 12/12/18 21:00 Room Air 12/12/18 20:00 97.2 84 20 153/77 (102) 98 12/12/18 16:00 97.9 80 18 162/89 (113) 99 Intake and Output 12/12/18 12/13/18 18:59 06:59 Intake Total 350 ml 1535 ml Balance 350 ml 1535 ml Intake Oral 350 ml 280 ml IV Total 1255 ml # Voids 3 2 Laboratory Tests Test 12/13/18 06:23 White Blood Count 10.0 K/UL (4.8-10.8) Red Blood Count 4.68 M/UL (4.20-5.40) Hemoglobin 12.4 G/DL (12.0-16.0) Hematocrit 37.4 % (37.0-47.0) Mean Corpuscular Volume 80 FL (80-99) Mean Corpuscular Hemoglobin 26.4 PG (27.0-31.0) L Mean Corpuscular Hemoglobin Concent 33.1 G/DL (32.0-36.0) Red Cell Distribution Width 13.7 % (11.6-14.8) Platelet Count 317 K/UL (150-450) Mean Platelet Volume 6.1 FL (6.5-10.1) L Neutrophils (%) (Auto) 70.2 % (45.0-75.0) Lymphocytes (%) (Auto) 21.0 % (20.0-45.0) Monocytes (%) (Auto) 5.9 % (1.0-10.0) Eosinophils (%) (Auto) 1.7 % (0.0-3.0) Basophils (%) (Auto) 1.1 % (0.0-2.0) Sodium Level 134 MMOL/L (136-145) L Potassium Level 3.8 MMOL/L (3.5-5.1) Chloride Level 99 MMOL/L (98-107) Carbon Dioxide Level 29 MMOL/L (21-32) Anion Gap 6 mmol/L (5-15) Blood Urea Nitrogen 5 mg/dL (7-18) L Creatinine 0.5 MG/DL (0.55-1.30) L Estimat Glomerular Filtration Rate > 60 mL/min (>60) Glucose Level 103 MG/DL (74-106) Calcium Level 8.7 MG/DL (8.5-10.1) Height (Feet): 5 Height (Inches): 4.00 Weight (Pounds): 179 General Appearance: WD/WN, no apparent distress, alert Cardiovascular: normal rate Respiratory/Chest: normal breath sounds, no respiratory distress Abdominal Exam: normal bowel sounds, non tender, soft Extremities: normal range of motion, non-tender Cherelle Fagan NP Dec 13, 2018 15:14
[2018-12-13 16:00] VITALS: BP 138/83
--- NOTE | 2018-12-15 10:56 | Discharge Summary ---
Discharge Summary Discharge Summary _ DATE OF ADMISSION: 12/09/2018 DATE OF DISCHARGE: 12/13/2018 DISCHARGED BY: Dr. Parra REASON FOR ADMISSION: 48 years old female with past medical history for symptomatic leiomyomata, uncontrolled by outpatient management , undergone uterine artery embolization on 11/29/18. She presented to emergency department with complaint of diffuse abdominal pain, 6 out of 10 on a scale 1-10. Patient reported nausea, but no vomiting. She denied fever and chills. She denied chest pain and shortness of breath. Upon evaluation vital signs were stable. Laboratory workup revealed leukocytosis WBC 15.5 , stable hemoglobin hematocrit . Stable renal parameters , LFT and lipase. CT of the abdomen and pelvis revealed 3.3 cm hypoattenuating focus centrally within the uterus. Given stated clinical history, likely represented a recently embolized fibroid , but could represent blood in the endometrium. No definite acute abnormality. No evidence of complication related to recent procedure. Colonic diverticulosis without evidence of diverticulitis. Incidental finding of small cervical nabothian cyst Urinalysis revealed no evidence of UTI. Patient was admitted for further management. CONSULTANTS: ID specialist Dr. Mclaughlin [facility] COURSE: Patient was admitted to medical surgical floor. Patient started on IV hydration and empiric antibiotics. Pain management was addressed. Symptomatic care provided. Diet was slowly started as tolerated. GI specialist closely followed. Bowel regimen instituted. Antiemetic were on board as needed. Abdominal pain was likely secondary to constipation. Diet was slowly advanced as tolerated. Patient was started on simethicone and probiotics. Ambulation was encouraged. Supportive care provided. Patient was able to tolerate diet. Patient had bowel movement. Pain was controlled. Abdominal pain resolved. Leukocytosis resolved . Hemoglobin and hematocrit remained stable. Patient stabilized and was ready for discharge home. FINAL DIAGNOSES: Abdominal pain-resolved Constipation Recent uterine artery embolization secondary to symptomatic leiomyomata Leukocytosis -resolved DISCHARGE MEDICATIONS: List of medication provided to patient. DISCHARGE INSTRUCTIONS: Patient was discharged home. Follow up with primary care provider. Patient was instructed on proper bowel regimen to avoid further constipation.of I have been assigned to dictate discharge summary for this account. I was not involved in the patient's management. Tricia Desai NP Dec 15, 2018 10:56
== END 2018-12-13 16:30 | disposition home or self-care (01) | DRG 392 ==
LOC: EMR 13:24 → EDBEDREQ 13:27 → 3E 13:42
DX: K59.00 Constipation, unspecified (principal); K57.90 Diverticulosis of intestine, part unspecified, without perforation or abscess without bleeding; D72.829 Elevated white blood cell count, unspecified; R10.9 Unspecified abdominal pain
CPT/HCPCS: 36415; 74176; 76700; 80048; 80053; 81003; 83690; 85025; 96361; 96374; 96375; 96376; 99285; J2405